=== PATIENT | female | born 2000 | race Caucasian/White ===

== ENCOUNTER 2024-03-01 08:19 | Emergency (ER) | payer OTHER ==
[~2024-03-01] VITALS: Ht 152.4 cm; Wt 94.5 kg
[2024-03-01 08:27] VITALS: BP 135/90; PULSE 100; RESP 18; TEMP 98.6; O2SAT 98
[2024-03-01] MEDS: ONDANSETRON 4 MG ODT PO ONE (08:59)
[2024-03-01] MEDS: KETOROLAC 30 MG/ML VIAL IM ONE (09:00)
[2024-03-01 09:11] VITALS: BP 128/86; PULSE 89; RESP 18; TEMP 98.6; O2SAT 98
== END 2024-03-01 10:18 | disposition home or self-care (01) ==
LOC: MED 08:19
DX: S76.012A Strain of muscle, fascia and tendon of left hip, initial encounter (principal); S16.1XXA Strain of muscle, fascia and tendon at neck level, initial encounter; V89.2XXA Person injured in unspecified motor-vehicle accident, traffic, initial encounter; Y93.89 Activity, other specified; Y92.410 Unspecified street and highway as the place of occurrence of the external cause; Y99.8 Other external cause status
CPT/HCPCS: 71045; 73502; 81025; 96372; 99284; J1885; Q0162